=== PATIENT | male | born 1965 ===

== ENCOUNTER 2023-02-08 09:26 | Day surgery (SDC) | payer OTHER ==
[2023-02-05 13:46] VITALS: BMI 26.6
[2023-02-08] MEDS ORDERED: Lidocaine 1% PF 5 ML VIAL ONE (11:05)
[2023-02-08] MEDS ORDERED: PROPOFOL 20 ML ONE (11:05)
[2023-02-08] MEDS ORDERED: Ondansetron PF 4 MG/2 ML Vial ONE (11:05)
[2023-02-08] MEDS ORDERED: CEFAZOLIN 2 GM VIAL ONE (11:45)
[2023-02-08] MEDS ORDERED: Fentanyl 100 MCG/2 ML VIAL ONE (11:53)
[2023-02-08] MEDS ORDERED: PHENYLEPHRINE-NS 100 MCG/ML 10 ML SYRINGE ONE (12:06)
[2023-02-08] MEDS ORDERED: Bupivacaine 0.5% 10 ML VIAL ONE (12:20)
[2023-02-08] MEDS ORDERED: Ketorolac Tromethamine 30 MG/ML VIAL ONE (12:30)
[2023-02-08] MEDS ORDERED: HYDROcodone/Acetaminophen 5/325 mg Tablet ONE (13:50)
== END 2023-02-08 14:20 | disposition home or self-care (01) ==
LOC: CSHSDC 09:26
PROVIDERS: ATTEND Podiatrist Foot & Ankle Surgery
PROC: 0Y6Q0Z0 Detachment at Left 1st Toe, Complete, Open Approach (ICD-10-PCS; principal; 2023-02-08)
DX: M86.172 Other acute osteomyelitis, left ankle and foot (principal); I10 Essential (primary) hypertension; E11.9 Type 2 diabetes mellitus without complications; K21.9 Gastro-esophageal reflux disease without esophagitis; Z90.49 Acquired absence of other specified parts of digestive tract
CPT/HCPCS: 88305; 93005; J1885; J2405; J2704; J3010; J3490